=== PATIENT | female | born 1950 | race Caucasian/White ===

== ENCOUNTER → 2017-04-04 | Outpatient (CLI) | payer MEDICARE, BC ==
[~2017-04-04] MED LIST: ASPI-557 PO; HYDR-4246 PO
--- NOTE | 2017-04-04 16:19 | DI ---
Indication: ITS.REASON: N93.9 Abnormal uterine and vaginal bleeding, unspecified PROCEDURE: US PELVIC NON OB W/TRANS VAG: Encounter: Initial Comparison: None FINDINGS: Transvaginal and transabdominal pelvic imaging was performed. The uterus measures 8.4 x 4.3 x 4.6 cm. The parenchyma is heterogeneous with fibroids. The largest lesion measures 2.2 x 1.9 x 1.9 cm in the submucosal region the midline. The endometrial stripe is abnormally thickened at 16 mm and somewhat heterogeneous without increased internal Doppler flow. Nabothian cysts in the cervix. Both ovaries are identified and normal in appearance. The right ovary measures 1.3 x 0.9 x 1.5 cm. The left ovary measures 1.6 x 1.1 x 2.1 cm. There are no abnormal adnexal masses detected. No free fluid. IMPRESSION: 1. Heterogeneous thickened endometrium raising strong concern for endometrial carcinoma given the history of postmenopausal uterine bleeding. Endometrial biopsy is recommended. 2. Uterine fibroids. .
== END ==
LOC: IMA 14:19
PROVIDERS: ATTEND Physician Assistant
DX: R93.8 Abnormal findings on diagnostic imaging of other specified body structures (principal); D25.9 Leiomyoma of uterus, unspecified; N93.9 Abnormal uterine and vaginal bleeding, unspecified